=== PATIENT | female | born 1960 | race Caucasian/White ===

== ENCOUNTER → 2016-09-15 | Outpatient (CLI) | payer MEDICAID | END | disposition home or self-care (01) | LOC: CFH 08:22 | PROVIDERS: ATTEND Anesthesiology | DX: S83.282A Other tear of lateral meniscus, current injury, left knee, initial encounter (principal); M25.462 Effusion, left knee; M71.22 Synovial cyst of popliteal space [Baker], left knee; G89.3 Neoplasm related pain (acute) (chronic); G43.119 Migraine with aura, intractable, without status migrainosus; X58.XXXA Exposure to other specified factors, initial encounter; Y93.89 Activity, other specified; Y92.89 Other specified places as the place of occurrence of the external cause; Y99.8 Other external cause status ==

== ENCOUNTER → 2016-09-26 | Outpatient (CLI) | payer MEDICAID ==
[~2016-09-26] MED LIST: BUTA1CAP5 PO; CARI350T14 PO; LEVO100T5 PO; OXYC10TA6 PO; ROPI4TAB6 PO; TOPI100T94 PO; TRAZ50TA18 PO
== END | disposition home or self-care (01) ==
LOC: CARD 12:35
PROVIDERS: ATTEND Psychiatry & Neurology Neurology
DX: G40.89 Other seizures (principal)
CPT/HCPCS: 95819

== ENCOUNTER 2016-12-15 07:16 | Emergency (ER) | payer MEDICAID ==
[~2016-12-15] VITALS: Ht 167.6 cm; Wt 66.9 kg
[2016-12-15 07:18] VITALS: BP 186/99
[2016-12-15] MEDS ORDERED: ROPI4TAB6 PO (07:34)
[2016-12-15] MEDS ORDERED: LISI-170 PO (07:34)
[2016-12-15] MEDS ORDERED: LEVO100T5 PO (07:34)
[2016-12-15] MEDS ORDERED: BUTA1CAP5 PO (07:34)
[2016-12-15] MEDS ORDERED: OXYC10TA6 PO (07:34)
[2016-12-15] MEDS ORDERED: CARI350T PO (07:34)
[2016-12-15] MEDS ORDERED: KETOROLAC 30 MG/1 ML IM ONE (08:00)
== END 2016-12-15 09:27 | disposition home or self-care (01) ==
LOC: ED 09:02
DX: S80.02XA Contusion of left knee, initial encounter (principal); I10 Essential (primary) hypertension; F17.210 Nicotine dependence, cigarettes, uncomplicated; E03.9 Hypothyroidism, unspecified; X50.1XXA Overexertion from prolonged static or awkward postures, initial encounter; Y93.89 Activity, other specified; Y92.009 Unspecified place in unspecified non-institutional (private) residence as the place of occurrence of the external cause; Y99.8 Other external cause status
CPT/HCPCS: 29505; 99284

== ENCOUNTER 2017-03-11 08:00 | Outpatient (CLI) | payer MEDICAID ==
[~2017-03-11 08:00] MED LIST changes: +CARI350T PO; +LISI-170 PO; +TOPI100T8 PO; -TOPI100T94 PO
== END 2017-03-11 11:30 | disposition home or self-care (01) ==
LOC: ROC 08:00
PROVIDERS: ATTEND Radiology Radiation Oncology
DX: Z02.9 Encounter for administrative examinations, unspecified (principal)
CPT/HCPCS: 70553

== ENCOUNTER → 2017-03-25 | Outpatient (CLI) | payer MEDICAID | END | disposition home or self-care (01) | LOC: ROC 08:17 | PROVIDERS: ATTEND Radiology Radiation Oncology | DX: D32.0 Benign neoplasm of cerebral meninges (principal) | CPT/HCPCS: 99213; G0463 ==

== ENCOUNTER → 2017-09-16 | Outpatient (CLI) | payer MEDICAID ==
[~2017-09-16] MED LIST changes: +GADOBUTROL 7.5 MMOL/7.5 ML VIAL ONE
== END | disposition home or self-care (01) ==
LOC: CFH 08:40
PROVIDERS: ATTEND Family Medicine
DX: D32.9 Benign neoplasm of meninges, unspecified (principal)
CPT/HCPCS: 70553; 82565; A9585

== ENCOUNTER 2017-12-10 05:02 | Emergency (ER) | payer MEDICAID ==
[~2017-12-10] VITALS: Ht 167.6 cm; Wt 79.4 kg
[~2017-12-10 05:02] MED LIST changes: -GADOBUTROL 7.5 MMOL/7.5 ML VIAL ONE
[2017-12-10] MEDS ORDERED: KETOROLAC 30 MG/1 ML IVPush ONE (05:30)
[2017-12-10] MEDS ORDERED: SODIUM CHLORIDE FLUSH 10ML SYR IVF ONE (05:30)
[2017-12-10 05:43] LABS: BASOPHILS # (AUTO) 0.05 x10^3/uL (0-0.1); BASOPHILS % (AUTO) 1 % (0-1); EOSINOPHILS # (AUTO) 0.26 x10^3/uL (0-0.4); EOSINOPHILS % (AUTO) 3 % (1-7); LYMPHOCYTES # (AUTO) 3.74 x10^3/uL (1-3.4); LYMPHOCYTES % (AUTO) 49 % (22-44); MD NO; MEAN CORPUSCULAR VOLUME 96.9 fL (80-100); MEAN PLATELET VOLUME 7.9 fL (7.4-10.4); MONOCYTES # (AUTO) 0.52 x10^3/uL (0.2-0.8); MONOCYTES % (AUTO) 7 % (2-9); NEUTROPHILS # (AUTO) 3.09 x10^3/uL (1.8-6.8); NEUTROPHILS % (AUTO) 40 % (42-75); PLATELET COUNT 303 x10^3/uL (130-400); RED CELL DISTRIBUTION WIDTH 13.4 % (9.6-15.2)
[2017-12-10] MEDS ORDERED: KETOROLAC 30 MG/1 ML ONE (05:43)
[2017-12-10 05:48] LABS: ALANINE AMINOTRANSFERASE 131 U/L (12-78); ALBUMIN 4.2 g/dL (3.4-5.0); ANION GAP 4 mmol/L (5-15); CALCIUM 9.6 mg/dL (8.5-10.1); CHLORIDE 104 mmol/L (98-107)
[2017-12-10 05:51] LABS: ALKALINE PHOSPHATASE 112 U/L (45-117); BILIRUBIN,TOTAL 0.4 mg/dL (0.2-1.0); CREATININE 1.34 mg/dL (0.55-1.02); TOTAL PROTEIN 8.3 g/dL (6.4-8.2)
[2017-12-10] MEDS ORDERED: DIAZEPAM 5 MG TABLET ONE (05:54)
[2017-12-10 05:55] LABS: INTERNATIONAL NORMALIZED RATIO 0.96 (0.93-1.1)
[2017-12-10] MEDS ORDERED: DIAZEPAM 5 MG TABLET PO ONE (06:00)
[2017-12-10] MEDS ORDERED: naproxen (06:14)
[2017-12-10] MEDS ORDERED: FENTANYL PF 100 MCG/2ML IV ONE (07:00)
[2017-12-10] MEDS ORDERED: FENTANYL PF 100 MCG/2ML ONE (07:03)
[2017-12-10] MEDS ORDERED: ONDANSETRON ODT 4 MG ONE (07:30)
[2017-12-10] MEDS ORDERED: ONDANSETRON ODT 4 MG PO ONE (07:30)
[2017-12-10 07:48] LABS: MICROSCOPIC NOT IND
[2017-12-10 07:51] LABS: CULTURE INDICATED? NO
[2017-12-10 08:19] VITALS: BP 150/74
== END 2017-12-10 08:28 | disposition home or self-care (01) ==
LOC: ED 05:51
DX: S39.012A Strain of muscle, fascia and tendon of lower back, initial encounter (principal); I10 Essential (primary) hypertension; E03.9 Hypothyroidism, unspecified; X58.XXXA Exposure to other specified factors, initial encounter; Y93.89 Activity, other specified; Y92.89 Other specified places as the place of occurrence of the external cause; Y99.8 Other external cause status
CPT/HCPCS: 36415; 72110; 72170; 80053; 81003; 83690; 85025; 85610; 96374; 96375; 99285; J1885; J3010; Q0162

== ENCOUNTER → 2018-03-31 | Outpatient (CLI) | payer MEDICAID ==
[~2018-03-31] MED LIST changes: +TRAZ-136 PO; -TRAZ50TA18 PO; +naproxen
== END | disposition home or self-care (01) ==
LOC: CFH 07:17
PROVIDERS: ATTEND Radiology Radiation Oncology
DX: Z02.9 Encounter for administrative examinations, unspecified (principal)

== ENCOUNTER → 2018-08-04 | Outpatient (CLI) | payer MEDICAID ==
[~2018-08-04] MED LIST changes: -TRAZ-136 PO; +TRAZ50TA66 PO
== END | disposition home or self-care (01) ==
LOC: ROC 09:23
PROVIDERS: ATTEND Radiology Radiation Oncology
DX: Z08 Encounter for follow-up examination after completed treatment for malignant neoplasm (principal); D32.0 Benign neoplasm of cerebral meninges
CPT/HCPCS: 99212; G0463

== ENCOUNTER 2021-01-15 09:34 | Outpatient (CLI) | payer MEDICARE ==
[~2021-01-15 09:34] MED LIST changes: +CARI-389 PO; -CARI350T14 PO
[2021-01-15] MEDS ORDERED: GADOTERATE 10 MMOL/20ML SYR ONE (17:45)
== END 2021-01-15 23:59 | disposition home or self-care (01) ==
LOC: RAD 09:34
PROVIDERS: ATTEND Radiology Radiation Oncology
DX: D32.0 Benign neoplasm of cerebral meninges (principal); I67.82 Cerebral ischemia; J34.89 Other specified disorders of nose and nasal sinuses
CPT/HCPCS: 70553; A9575

== ENCOUNTER 2021-01-31 07:44 | Outpatient (CLI) | payer MEDICARE, MEDICAID | END 2021-01-31 23:59 | disposition home or self-care (01) | LOC: ROC 07:44 | PROVIDERS: ATTEND Radiology Radiation Oncology | DX: Z08 Encounter for follow-up examination after completed treatment for malignant neoplasm (principal); D32.0 Benign neoplasm of cerebral meninges | CPT/HCPCS: 99213; G0463 ==